=== PATIENT | male | born 1960 | race Caucasian/White ===

== ENCOUNTER 2017-10-12 11:41 | Emergency (ER) | payer SELFPAY ==
[2017-10-12 11:43] VITALS: BP 130/75; PULSE 96; RESP 16; TEMP 98.3; O2SAT 96
[2017-10-12] MEDS ORDERED: LIDOCAINE HCL 1% 20 ML VIAL ONE (12:38)
[2017-10-12] MEDS ORDERED: LIDOCAINE HCL 1% 50 ML VIAL INFIL ONE (12:45)
[2017-10-12] MEDS ORDERED: ACETAMINOPHEN/HYDROcodone 325 MG/5 MG TAB PO ONE (12:45)
--- NOTE | 2017-10-12 12:46 | PD ---
HPI Chief Complaint: Injury Time Seen by Provider: 12:20 Travel History International Travel<30 days: No Contact w/Intl Traveler<30days: No Traveled to known affect area: No History of Present Illness HPI 56yo M presents to the ED with c/o persistent pain in left fingers. Pt was in [place] and had a forklift fall on his left hand when they were trying to lift the forklift and his coworker let go of his side. Pt was seen at an emergency department in [place] and was told he had a tuft fracture in left third digit. Pt had subungal hematoma and had release of the hematoma there but said it did not all come out. Pt was given lortab which helped with the pain but ran out of lortab 3-4 days ago. Pt has not follow up with hand surgery as instructed. Denies any new injuries. Tetanus was updated. Denies any fever, chest pain, sob, n/v, abdominal pain, focal weakness. PFSH Past Medical History Diabetes: Yes (TYPE II, HAS NOT HAD MEDS SINCE JUNE - METFORMIN) Patient Takes Glucophage: No Influenza Vaccination: No Social History Alcohol Use: Yes Tobacco Use: Yes (1ppd) Allergies-Medications (Allergen,Severity, Reaction): Coded Allergies: No Known Drug Allergies (Verified Allergy, Unknown, 10/12/17) Reported Meds & Prescriptions Reported Meds & Active Scripts Active Hydrocodone-Acetaminophen 5-325 mg Tab 1 Tab PO Q6H PRN Bactrim DS (Sulfamethoxazole-Trimethoprim) 800-160 Mg Tab 1 Tab PO BID Review of Systems Except as stated in HPI: all other systems reviewed are Neg Physical Exam Narrative GENERAL: 56yo M in mild distress. SKIN: Focused skin assessment warm/dry. HEAD: Atraumatic. Normocephalic. CARDIOVASCULAR: Regular rate and rhythm. No murmur appreciated. RESPIRATORY: No accessory muscle use. Clear to auscultation. Breath sounds equal bilaterally. GASTROINTESTINAL: Abdomen soft, non-tender, nondistended. MUSCULOSKELETAL: Left hand: +Subungal hematoma at 100% on 2nd and 4th nailbed. +30% subungal hematoma 3rd digit. +swelling at base of 2nd and 4th nail bed presumed to be paronychia that needs I&D. Small amount of erythema in base of 2nd and 4th metacarpal, not tender to palpation. Edema is localized in distal digits 2-4. Distal pulse intact. NEUROLOGICAL: Awake and alert. No obvious cranial nerve deficits. Motor grossly within normal limits. Normal speech. PSYCHIATRIC: Appropriate mood and affect; insight and judgment normal. Data Data Last Documented VS Vital Signs Date Time Temp Pulse Resp B/P (MAP) Pulse Ox O2 Delivery O2 Flow Rate FiO2 10/12/17 15:10 90 16 125/77 (93) 10/12/17 11:43 98.3 96 Orders Orders Lidocaine 1% Inj (50 Ml) (Xylocaine 1% I (10/12/17 12:45) Hand, Limited (2vws) (10/12/17 ) Acetamin-Hydrocod 325-5 Mg ([place] 5-325 (10/12/17 12:45) Lidocaine 1% Inj (Xylocaine 1% Inj) (10/12/17 12:38) Ed Discharge Order (10/12/17 15:11) [facility] Medical Decision Making Medical Screen Exam Complete: Yes Emergency Medical Condition: Yes Differential Diagnosis Crush injury vs. paronychia vs. subungal hematoma Narrative Course 56yo M here with c/o persistent pain in his left fingers after running out of lortab. Pt had recent crush injury 1 week ago and was evaluated at another ED. Xray left hand still showed nonintra-articular fracture of distal tuft third digit which he knows about. Pt given lortab which help with pain. There is some swelling under the 2nd and 4th nailbed in left hand so digital block performed and this was drained. No pus was drain but it was a collection of blood. Subungal hematoma was also drained in 2nd and 4th digit. Pt tolerated procedure. There is small amount of redness on dorsum of hand, may be early cellulitis. Will cover with antibiotics that is free at [facility]. Pt is transitioning back to [place] and will follow up with his physician in [place]. Will give him a few doses of lortab as he has to work and cant see his doctor for another week. Pt is well appearing with no fever or vomiting. Return precautions given. Procedures Procedure Narrative Digital block was performed with lidocaine 1% to left 2nd and 4th digit. 2nd and 4th digit was cleaned with betadine. After digital block, 18 gauge needle was use to release blood from subungal hematoma from 2nd and 4th digit. #11 scapel was used to lift the skin from the base of the 2nd and 4th nail bed swelling. Blood was released instead of pus. Sterile gauze used to wrap 2nd and 4th digit. Pt tolerated procedure well. Diagnosis Primary Impression: Subungual hematoma of digit of hand Qualified Codes: S60.10XA - Contusion of unspecified finger with damage to nail, initial encounter Referrals: Rachel Henson MD call for appointment Patient Instructions: General Instructions Departure Forms: Tests/Procedures Additional Instructions: Please follow up with your doctor or our hand surgery clinic. Return to the ED if symptoms worsen. Med/Other Pt SpecificInfo: Prescription(s) given Scripts Hydrocodone-Acetaminophen (Hydrocodone-Acetaminophen) 5-325 mg Tab 1 TAB PO Q6H Y for PAIN, #10 TAB 0 Refills Prov: Jennifer Ryan DO 10/12/17 Sulfamethoxazole-Trimethoprim (Bactrim DS) 800-160 Mg Tab 1 TAB PO BID for Infection, #14 TAB 0 Refills Prov: Jennifer Ryan DO 10/12/17 Disposition: 01 DISCHARGE HOME Condition: Stable Jennifer Ryan DO October 12, 2017 12:46
--- NOTE | 2017-10-12 13:37 | RADRPT ---
EXAM DATE/TIME: 10/12/2017 13:26 [facility] COMPARISON: No previous studies available for comparison. INDICATIONS : Fork lift [place] fell on left hand, has pain tips of 2nd, 3rd, and 4th fingers MEDICAL HISTORY : None. SURGICAL HISTORY : None. ENCOUNTER: Initial ACUITY: 1 week PAIN SCORE: 9/10 LOCATION: Left hand FINDINGS: Soft tissue swelling distal cedric second third and fourth digits [id number] Fracture distal tuft third digit CONCLUSION: [id number] fracture distal tuft third digit Felice Turner MD FACR on October 12, 2017 at 13:34 Board Certified Radiologist. This report was verified electronically.
[2017-10-12 14:46] VITALS: RESP 17
[2017-10-12] MEDS ORDERED: HYDR-3516 PO (14:57)
[2017-10-12] MEDS ORDERED: BACT800T5 PO (14:57)
[2017-10-12 15:10] VITALS: BP 125/77
== END 2017-10-12 15:18 | disposition home or self-care (01) ==
LOC: PHED 11:41
DX: S60.12 Contusion of index finger with damage to nail (principal); S60.14 Contusion of ring finger with damage to nail; S62.633D Displaced fracture of distal phalanx of left middle finger, subsequent encounter for fracture with routine healing; W24.0XXD Contact with lifting devices, not elsewhere classified, subsequent encounter; Y99.0 Civilian activity done for income or pay; E11.9 Type 2 diabetes mellitus without complications; F17.200 Nicotine dependence, unspecified, uncomplicated
CPT/HCPCS: 11740; 73120